=== PATIENT | male | born 1985 | race Caucasian/White ===

== ENCOUNTER 2021-11-21 08:59 | Emergency (ER) | payer SELFPAY ==
[~2021-11-21] VITALS: Ht 162.6 cm; Wt 72.6 kg
--- NOTE | 2021-11-21 09:22 | NUR ---
DR AMAYA AT BEDSIDE
--- NOTE | 2021-11-21 09:22 | NUR ---
TO ER BED 11, ABDOMINAL PAIN/CRAMPING, NAUSEA VOMITING AND DIARRHEA X 3 DAYS, AAOX3, BREATHING EVEN AND NON LABORED, AWAITING MD MARCH
[2021-11-21] MEDS ORDERED: KETOROLAC TROMETHAMINE INJ 30 MG/ML VIAL IV ONE (09:30)
[2021-11-21] MEDS ORDERED: ONDANSETRON HCL/PF 4 MG/2 ML VIAL IV ONE (09:30)
[2021-11-21] MEDS ORDERED: KETOROLAC TROMETHAMINE INJ 30 MG/ML VIAL ONE (09:44)
[2021-11-21] MEDS ORDERED: ONDANSETRON HCL/PF 4 MG/2 ML VIAL ONE (09:44)
--- NOTE | 2021-11-21 09:56 | NUR ---
PATIENT NOT ABLE TO PROVIDE URINE SAMPLE AT THIS TIME. MADE AWARE
[2021-11-21 10:02] LABS: BASOPHILS # (AUTO) 0.1 K/uL (0.0-0.2); BASOPHILS % (AUTO) 0.5 % (0.0-2.0); EOSINOPHILS % (AUTO) 0.4 % (0.0-6.0); HEMATOCRIT 47 % (39-51); HEMOGLOBIN 15.4 g/dL (13.5-17.5); LYMPHOCYTES # (AUTO) 1.7 K/uL (0.8-4.8); LYMPHOCYTES % (AUTO) 10.2 % (20.0-44.0); MEAN CORPUSCULAR HGB CONC 33 g/dl (31.0-36.0); MEAN CORPUSCULAR VOLUME 92 fL (80-96); MONOCYTES # (AUTO) 0.8 K/uL (0.1-1.30); MONOCYTES % (AUTO) 4.7 % (2.0-12.0); NEUTROPHILS # (AUTO) 13.7 K/uL (1.8-8.9); NEUTROPHILS % (AUTO) 84.2 % (43.0-81.0); PLATELET COUNT (AUTO) 349 K/uL (150-450); RED BLOOD CELL COUNT(AUTO) 5.12 MIL/uL (4.5-6.0); WHITE BLOOD COUNT (AUTO) 16.2 K/uL (4.3-11.0)
[2021-11-21 10:17] LABS: ALBUMIN 4.6 g/dL (3.4-5.0); BILIRUBIN,DIRECT 0.1 mg/dL (0.0-0.2); BILIRUBIN,TOTAL 0.5 mg/dL (0.2-1.0); CALCIUM, SERUM 9.5 mg/dL (8.5-10.1); CREATININE 1.1 mg/dL (0.6-1.3); POTASSIUM 3.4 mmol/L (3.5-5.1); TOTAL PROTEIN, SERUM 8.2 g/dL (6.4-8.2)
[2021-11-21] MEDS ORDERED: IV NS 0.9% 250 ML IV ONE (10:36)
[2021-11-21] MEDS ORDERED: IOHEXOL-350 100 ML VIAL IV ONE (10:36)
[2021-11-21] MEDS ORDERED: METOCLOPRAMIDE HCL 10 MG/2 ML VIAL ONE (11:14)
[2021-11-21] MEDS ORDERED: METOCLOPRAMIDE HCL 10 MG/2 ML VIAL IV ONE (11:30)
[2021-11-21] MEDS ORDERED: ONDA4TAB11 PO (11:49)
--- NOTE | 2021-11-21 12:03 | NUR ---
IV removed. Catheter intact and site benign. Pressure and 4x4 applied to site. No bleeding noted.Patient discharged to home in stable condition. Written and verbal after care instructions given. Patient verbalizes understanding of instruction.
[2021-11-21 12:04] VITALS: BP 142/88
== END 2021-11-21 12:24 | disposition home or self-care (01) ==
LOC: ER 10:32
DX: A08.4 Viral intestinal infection, unspecified (principal); R10.84 Generalized abdominal pain; Z79.899 Other long term (current) drug therapy
CPT/HCPCS: 99285; 74177; 96374; 96375; 85025; 80048; 83690; 80076; 80307; J2765; J1885; J2405; J7030; J7050; Q9967; 36415